=== PATIENT | male | born 1990 | race African-American/Black ===

== ENCOUNTER 2019-01-06 23:56 | Emergency (ER) | payer SELFPAY ==
[2019-01-07 00:09] VITALS: BP 137/85; PULSE 87; RESP 17; TEMP 37.1; O2SAT 98; BMI 28.1
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
[2019-01-07] MEDS: IBUPROFEN 400 MG TABLET 800 MG PO (01:09)
[2019-01-07 01:22] VITALS: BP 116/77; PULSE 82; RESP 18; O2SAT 96
== END 2019-01-07 01:25 | disposition home or self-care (01) ==
PROVIDERS: Emergency Provider Emergency Medicine
DX: S05.8X2A Other injuries of left eye and orbit, initial encounter (principal); W39.XXXA Discharge of firework, initial encounter
CPT/HCPCS: 99282; 99283

== ENCOUNTER 2019-11-28 19:41 | Emergency (ER) | payer SELFPAY ==
[2019-11-28 19:59] VITALS: BP 144/76; PULSE 104; RESP 20; TEMP 37.2; O2SAT 98
--- NOTE | 2019-11-28 20:27 | ED.DENTAL ---
HPI - Dental/Oral General Chief complaint: Dental/Oral Stated complaint: TOOTH ACHE RIGHT SIDE AND RIGHT EAR PAIN Time Seen by Provider: 11/28/19 20:06 Source: patient Mode of arrival: Ambulatory Limitations: no limitations History of Present Illness HPI Narrative: 29-year-old male smoker with noncontributory medical history presents with a chief complaint of a few days of worsening dental pain and some right-sided facial swelling. He denies any fever or chills. He denies any trauma. He denies runny nose or sore throat but does have some right-sided ear pain as well. He states his symptoms are worse with eating and drinking. MD Complaint: tooth pain Teeth map: 1. Onset (ago): day(s) Duration: constant Severity: moderate Relieving factors: nothing Exacerbating factors: chewing, cold and heat Context: history of dental caries Associated symptoms: ear pain Treatment prior to arrival: none Related Data Previous Rx's Medication Instructions Recorded hydrocodone-acetaminophen [[place]] 1 tab PO Q6HP PRN #10 tab 08/05/17 penicillin V potassium 500 mg PO Q6H #40 tab 08/05/17 ketorolac 10 mg PO Q6H PRN #14 tab 11/28/19 penicillin V potassium 500 mg PO QID 10 Days #40 tab 11/28/19 Allergies Allergy/AdvReac Type Severity Reaction Status Date / Time No Known Allergies Allergy Unknown Uncoded 01/07/19 00:33 Review of Systems Constitutional Constitutional: Denies chills, Denies fatigue, Denies fever(s), Denies frequent falls, Denies lethargy and Denies weakness Eyes Eyes: Denies change in vision, Denies eye discharge, Denies irritation and Denies loss of vision ENT Ears, Nose, Mouth, and Throat: Denies change in voice, Reports dental pain, Denies dizziness, Reports facial pain, Denies neck pain, Denies sore throat and Denies throat swelling Cardiovascular Cardiovascular: Denies chest pain, Denies irregular heart rhythm, Denies lightheadedness, Denies palpitations, Denies dyspnea, Denies dyspnea on exertion and Denies orthopnea Respiratory Respiratory: Denies cough, Denies dyspnea, Denies dyspnea on exertion and Denies wheezing Gastrointestinal Gastrointestinal: Denies abdominal pain, Denies change in bowel habits, Denies diarrhea, Denies nausea and Denies vomiting Genitourinary Genitourinary: Denies hematuria, Denies flank pain, Denies urinary incontinence and Denies urinary urgency Musculoskeletal Musculoskeletal: Denies back pain, Denies muscle weakness, Denies neck pain, Denies numbness and Denies tingling Integumentary/Breasts Skin/Breast: Denies pruritus, Denies erythema, Denies rash and Denies wounds Neurologic Neurologic: Denies behavioral changes, Denies confusion, Denies dizziness, Denies frequent falls, Denies loss of vision, Denies numbness, Denies tingling and Denies weakness Psychiatric Psychiatric: Denies anxiety, Denies behavioral changes, Denies confusion, Denies depression, Denies homicidal ideation and Denies suicidal ideation Endocrine Endocrine: Denies fatigue, Denies flushing and Denies palpitations Hematologic/Lymphatic Hematologic/Lymphatic: Denies easy bruising Allergic/Immunologic Allergic/Immunologic: Denies urticaria, Denies throat swelling and Denies wheezing Patient History Medical History Patient denies significant medical history (Acute) Up to date with tetanus vaccination (Acute) Social History Smoking Status: Never smoker Smoking Status: Never smoker Substance Use Type: marijuana Exam Narrative Exam Narrative: GEN: AOx3 and in mild distress HEENT: mild R sided mandibular swelling and minimal redness. Tooth 31 with fracture, no intraoral fluctuance or swelling. Posterior pharynx widely patent. EYES: Pupils are equal, round, and reactive to light and accommodation. Extraoccular muscles are intact bilaterally. There is no subconjunctival hemorrhage or exudate. CHEST: Lungs are clear to auscultation bilaterally and free of wheezes, rales, or rhonchi. Heart rate is regular rhythm, there are no murmurs, clicks, rubs, or gallops. There is no chest wall tenderness. ABD: Abdomen is soft and nontender. There is no guarding or rebound. Bowel sounds are normal in all 4 quadrants. There is no mass or organomegaly. EXT: Full painless ROM of all extremities with no loss of sensation or strength. SKIN: Warm, pink, and dry. No erythema or rash Initial Vital Signs Initial Vital Signs: Vital Signs Temperature 99 F 11/28/19 19:59 Pulse Rate 104 H 11/28/19 19:59 Respiratory Rate 20 11/28/19 19:59 Blood Pressure 144/76 H 11/28/19 19:59 Pulse Oximetry 98 11/28/19 19:59 Course Orders Ordered: Discontinued Medications Hydrocodone Bitart/Acetaminophen (Vicodin 5/325 Prepack) 1 bottle MISC SEEINSTR ONE Stop: 11/28/19 20:35 Penicillin V Potassium (Penicillin Vk 250mg Tab Prepack) 1 bottle MISC SEEINSTR ONE Stop: 11/28/19 20:35 Vital Signs Vital signs: Vital Signs - 8 hr 11/28/19 19:59 Temperature 99 F Pulse Rate 104 H Respiratory Rate 20 Blood Pressure 144/76 H Pulse Oximetry 98 Discharge Plan Departure Patient Disposition: Home Clinical Impression: Dental infection Instructions: DI for Dental Pain Activity Restrictions/Additional Instructions: *You have been diagnosed with [dental abscess] *What to do: *Take medications as directed *Follow up with your primary care provider in 2-3 days, call for an appointment. Let them know you were seen in the Emergency Department and that we ask that you be seen in follow up *Return to ER if you should have any new, worsening or concerning symptoms Prescriptions: New penicillin V potassium 500 mg tablet 500 mg PO QID 10 Days Qty: 40 RF: 0 ketorolac 10 mg tablet 10 mg PO Q6H PRN (Reason: pain) Qty: 14 RF: 0 No Action hydrocodone-acetaminophen [[place]] 5 MG/325 MG tablet 1 tab PO Q6HP PRNQty: 10 RF: 0 penicillin V potassium 500 MG tablet 500 mg PO Q6H Qty: 40 RF: 0 Referrals: Manoj Nuno DMD [Physician] -
== END 2019-11-28 20:40 | disposition home or self-care (01) ==
PROVIDERS: Emergency Provider Emergency Medicine
DX: K04.7 Periapical abscess without sinus (principal)
CPT/HCPCS: 99281

== ENCOUNTER 2025-07-22 13:29 | Emergency (ER) | payer SELFPAY ==
[2025-07-22 14:07] VITALS: BP 136/76; PULSE 104; RESP 18; TEMP 36.8; O2SAT 99; BMI 29.7
--- NOTE | 2025-07-22 14:12 | DI.RAD.S_ITS ---
PROCEDURE: XR ANKLE LT MIN 3V INDICATIONS: fall TECHNIQUE: 3 views of the ankle were acquired. COMPARISON: None. FINDINGS: Bones: No fractures or dislocations. Ankle mortise is normally aligned. No suspicious bony lesions. Soft tissues: Moderate tibiotalar joint effusion. Achilles tendon appears normal. IMPRESSION: No acute bony abnormality. Moderate joint effusion. Internal derangement not excluded. Dictated by: Aime Rodriguez M.D. on 07/22/2025 at 14:07 Approved by: Aime Rodriguez M.D. on 07/22/2025 at 14:08
--- NOTE | 2025-07-22 14:13 | DI.RAD.S_ITS ---
PROCEDURE: XR KNEE LT 3V INDICATIONS: fall TECHNIQUE: 3 views of the knee were acquired. COMPARISON: None. FINDINGS: Bones: No fractures or dislocations. No suspicious bony lesions. Soft tissues: No joint effusion. No suspicious soft tissue calcifications. IMPRESSION: No acute bony abnormality or significant effusion. Dictated by: Aime Rodriguez M.D. on 07/22/2025 at 14:08 Approved by: Aime Rodriguez M.D. on 07/22/2025 at 14:08
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
[2025-07-22] MEDS: IBUPROFEN 400 MG TABLET PO (16:46)
[2025-07-22] MEDS: ACETAMINOPHEN 325 MG TABLET 975 MG PO (16:46)
--- NOTE | 2025-07-22 16:51 | PC.NURSE ---
This pt was seen and assessed by Lindy WEISS. Angelo applied boot to affected leg and provided crutches and crutch training. This nurse just to DC pt.
== END 2025-07-22 16:52 | disposition home or self-care (01) ==
PROVIDERS: Emergency Provider Physician Assistant
DX: S93.402A Sprain of unspecified ligament of left ankle, initial encounter (principal); S80.212A Abrasion, left knee, initial encounter; W00.9XXA Unspecified fall due to ice and snow, initial encounter
CPT/HCPCS: 73562; 73610; 99283